=== PATIENT | female | born 1980 | race Caucasian/White ===

== ENCOUNTER 2019-02-10 12:56 | Emergency (ER) | payer OTHER ==
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
== END 2019-02-10 15:11 | disposition other institution (70) ==
LOC: MW.ED 12:56
DX: S00.03XA Contusion of scalp, initial encounter (principal); S09.90XA Unspecified injury of head, initial encounter; M79.604 Pain in right leg; M79.651 Pain in right thigh; Y04.2XXA Assault by strike against or bumped into by another person, initial encounter; Y92.009 Unspecified place in unspecified non-institutional (private) residence as the place of occurrence of the external cause
CPT/HCPCS: 70450; 70450-26; 73552-26-LT; 73552-RT; 99284; 99285-25